=== PATIENT | male | born 1950 | race Caucasian/White ===

== ENCOUNTER 2017-04-14 21:13 | Inpatient (IN) | payer OTHER ==
[~2017-04-14] VITALS: Ht 170.2 cm; Wt 87.6 kg
[2017-04-14 23:23] LABS: BASOPHIL % 0.3 % (0-2); PLATELET COUNT 207 x10^3mcL (130-400); RED CELL DISTRIBUTION WIDTH 12.8 % (11.5-14.5)
[2017-04-14 23:33] LABS: CALCIUM 9.3 mg/dL (8.5-10.1); CHLORIDE SERUM 101 mmol/L (98-107); CREATININE SERUM 0.9 mg/dL (0.7-1.3); GFR1 > 60 mL/min; GLUCOSE SERUM 388 mg/dL (74-106); POTASSIUM SERUM 3.8 mmol/L (3.5-5.1); SODIUM SERUM 137 mmol/L (136-145)
[2017-04-14 23:40] LABS: ALBUMIN 3.7 g/dL (3.4-5.0); ALKALINE PHOSPHATASE 154 U/L (46-116); ALT/SGPT 26 U/L (16-63); AST/SGOT 12 U/L (15-37); BILIRUBIN TOTAL 0.4 mg/dL (0.20-1.00); TOTAL PROTEIN, SERUM 8.2 g/dL (6.4-8.2)
[2017-04-15 00:13] LABS: microscopic required? NO
[2017-04-15 00:28] LABS: urine erythrocyte NEGATIVE (NEGATIVE)
[2017-04-15 01:44] LABS: CHOLESTEROL/HDL RATIO 6.4; MAGNESIUM 2.3 mg/dL (1.8-2.4); PHOSPHOROUS 2.7 mg/dL (2.5-4.9)
[2017-04-15 01:51] LABS: T3 TOTAL 1.03 ng/mL
[2017-04-15 01:53] LABS: FREE T4 0.98 ng/dL (0.76-1.46); FREE THYROXINE INDEX 2.7 ug/dL (1.4-4.5); T4(THYROXINE) 7.6 ug/dL (4.7-13.3)
[2017-04-15 02:06] VITALS: BP 138/83
[2017-04-15 05:29] VITALS: BP 122/71
[2017-04-15 06:25] LABS: BASOPHIL % 0.4 % (0-2); PLATELET COUNT 195 x10^3mcL (130-400); RED CELL DISTRIBUTION WIDTH 13.2 % (11.5-14.5)
[2017-04-15 06:36] LABS: CALCIUM 8.4 mg/dL (8.5-10.1); CARBON DIOXIDE 28.7 mmol/L (21-32); CHLORIDE SERUM 107 mmol/L (98-107); CREATININE SERUM 0.9 mg/dL (0.7-1.3); GFR1 > 60 mL/min; GLUCOSE SERUM 246 mg/dL (74-106); MAGNESIUM 2.1 mg/dL (1.8-2.4); PHOSPHOROUS 3.3 mg/dL (2.5-4.9); POTASSIUM SERUM 4.3 mmol/L (3.5-5.1); SODIUM SERUM 141 mmol/L (136-145)
[2017-04-15 07:42] LABS: AMPHETAMINE QUAL UR NONE DETECTED (NEG <=1000)
[2017-04-15 09:30] VITALS: BP 130/81
[2017-04-15 12:39] VITALS: BP 129/70
[2017-04-15 16:24] VITALS: BP 120/63
[2017-04-15 21:59] VITALS: BP 126/77
[2017-04-16 06:26] LABS: CALCIUM 8.4 mg/dL (8.5-10.1); CARBON DIOXIDE 26.6 mmol/L (21-32); CHLORIDE SERUM 105 mmol/L (98-107); CREATININE SERUM 0.8 mg/dL (0.7-1.3); GFR1 > 60 mL/min; GLUCOSE SERUM 157 mg/dL (74-106); POTASSIUM SERUM 3.8 mmol/L (3.5-5.1); SODIUM SERUM 139 mmol/L (136-145)
[2017-04-16 06:27] LABS: BASOPHIL % 0.3 % (0-2); PLATELET COUNT 202 x10^3mcL (130-400); RED CELL DISTRIBUTION WIDTH 12.7 % (11.5-14.5)
[2017-04-16 07:25] VITALS: BP 137/78
[2017-04-16 09:45] VITALS: BP 118/71
[2017-04-16] MEDS ORDERED: COMFORT EZ MC (13:17)
[2017-04-16] MEDS ORDERED: METFORMIN500 M1 PO (13:17)
[2017-04-16] MEDS ORDERED: TEST STRIPS1 EACH MC (13:18)
[2017-04-16] MEDS ORDERED: NORCO1 TA2 PO (13:30)
[2017-04-16] MEDS ORDERED: COL100 PO (13:30)
[2017-04-16 13:31] VITALS: BP 136/80
[2017-04-16 13:36] VITALS: Ht 170.2 cm; Wt 87.6 kg
[2017-04-16] MEDS ORDERED: CLINDAMYCIN HC300 MG PO (14:38)
== END 2017-04-16 15:55 | disposition home or self-care (01) | DRG 579 ==
LOC: ED 21:13 → DU 04-15 00:22
PROVIDERS: Emergency Medicine; Family Medicine; Podiatrist Foot & Ankle Surgery; ADMIT Family Medicine
PROC: 0J9R0ZZ Drainage of Left Foot Subcutaneous Tissue and Fascia, Open Approach (ICD-10-PCS; principal; 2017-04-15 11:30)
DX: L03.116 Cellulitis of left lower limb (principal); N17.0 Acute kidney failure with tubular necrosis; D68.69 Other thrombophilia; L02.612 Cutaneous abscess of left foot; E11.65 Type 2 diabetes mellitus with hyperglycemia; E78.5 Hyperlipidemia, unspecified; I10 Essential (primary) hypertension; E66.9 Obesity, unspecified; E83.51 Hypocalcemia; Z68.30 Body mass index [BMI] 30.0-30.9, adult
CPT/HCPCS: 82962; 83880; 84439; 90715; 94150; 97530-GP; J1885; J2001; J3490; J7030; Q0092